=== PATIENT | female | born 1990 | race Caucasian/White ===

== ENCOUNTER 2017-05-20 08:11 | Emergency (ER) | payer MEDICAID ==
[~2017-05-20] VITALS: Ht 162.6 cm; Wt 65.4 kg
[~2017-05-20 08:11] MED LIST: AMOX-291 PO; AZIT250T89 PO; CIPR500T3 PO; LEVE250T28 PO; LEVE500T38 PO; PRED20TA PO
[2017-05-20] MEDS ORDERED: SODIUM CHLORIDE 0.9% 1,000 ML IV ONE (09:11)
[2017-05-20] MEDS ORDERED: SODIUM CHLORIDE 0.9% 1,000ML IVBOLUS ONE (09:30)
[2017-05-20] MEDS ORDERED: LORazepam 2 MG/ML, 1ML IVPush ONE (09:30)
[2017-05-20] MEDS ORDERED: LORazepam 2 MG/ML, 1ML ONE (09:34)
[2017-05-20 09:38] LABS: BLOOD UREA NITROGEN 10 mg/dL (7-18)
[2017-05-20] MEDS ORDERED: HYDROmorphone 1 MG/ML, 1ML ONE (10:23)
[2017-05-20] MEDS ORDERED: HYDROmorphone 1 MG/ML, 1ML IV ONE (10:30)
[2017-05-20 11:00] VITALS: BP 106/63
[2017-05-20 11:40] LABS: HCG UR OBC PASS
== END 2017-05-20 11:58 | disposition home or self-care (01) ==
LOC: ED 09:10
DX: R56.9 Unspecified convulsions (principal)
CPT/HCPCS: 36415; 80048; 81001; 81025; 82040; 82542; 85025; 87086; 93005; 96361; 96374; 96375; 99285; J1170; J2060; J7030

== ENCOUNTER 2017-06-14 08:14 | Emergency (ER) | payer MEDICAID ==
[~2017-06-14] VITALS: Ht 162.6 cm; Wt 64.9 kg
[2017-06-14] MEDS ORDERED: KETOROLAC 30 MG/1 ML ONE (08:42)
[2017-06-14] MEDS ORDERED: LORazepam 1MG TABLET ONE (08:42)
[2017-06-14] MEDS ORDERED: KETOROLAC 30 MG/1 ML IM ONE (09:00)
[2017-06-14] MEDS ORDERED: LORazepam 1MG TABLET PO ONE (09:00)
[2017-06-14 09:20] LABS: HCG UR OBC PASS
[2017-06-14] MEDS ORDERED: HYDROmorphone 2 MG/ML, 1ML ONE (10:27)
[2017-06-14 10:50] VITALS: BP 121/71
[2017-06-14] MEDS ORDERED: HYDROmorphone 1 MG/ML, 1ML IM ONE ×2 (11:00)
== END 2017-06-14 10:56 | disposition home or self-care (01) ==
LOC: ED 09:05
DX: R07.89 Other chest pain (principal); F41.1 Generalized anxiety disorder; M94.0 Chondrocostal junction syndrome [Tietze]; G40.909 Epilepsy, unspecified, not intractable, without status epilepticus
CPT/HCPCS: 71020; 81025; 93005; 96372; 99285; J1170; J1885

== ENCOUNTER 2017-07-17 03:33 | Emergency (ER) | payer MEDICAID ==
[~2017-07-17] VITALS: Ht 162.6 cm; Wt 67.0 kg
[~2017-07-17 03:33] MED LIST changes: -LEVE500T38 PO; +LEVE500T54 PO
[2017-07-17 05:09] LABS: HEMOGLOBIN 13.7 g/dL (11.7-16.4); WHITE BLOOD COUNT 7.7 x10^3/uL (3.4-10)
[2017-07-17 05:28] LABS: BLOOD UREA NITROGEN 8 mg/dL (7-18)
[2017-07-17 05:59] VITALS: BP 120/79
== END 2017-07-17 06:34 | disposition home or self-care (01) ==
LOC: ED 04:17
DX: O20.0 Threatened abortion (principal); F17.200 Nicotine dependence, unspecified, uncomplicated; Z88.6 Allergy status to analgesic agent; Z88.8 Allergy status to other drugs, medicaments and biological substances
CPT/HCPCS: 36415; 76801; 80048; 81001; 82040; 84702; 85025; 86901; 87086; 99285

== ENCOUNTER 2017-07-25 17:01 | Emergency (ER) | payer MEDICAID ==
[~2017-07-25] VITALS: Ht 165.1 cm; Wt 62.4 kg
[2017-07-25 17:03] VITALS: BP 126/79
[2017-07-25 17:57] LABS: HEMATOCRIT 38.5 % (34.6-47.8); HEMOGLOBIN 13.1 g/dL (11.7-16.4); WHITE BLOOD COUNT 12.5 x10^3/uL (3.4-10)
[2017-07-25] MEDS ORDERED: SODIUM CHLORIDE 0.9% 1,000ML IVBOLUS ONE (18:00)
[2017-07-25] MEDS ORDERED: MORPHINE SULFATE 4 MG/ML, 1ML IVPush PRN (18:00)
[2017-07-25] MEDS ORDERED: ONDANSETRON 2MG/ML, 2ML IVPush ONE (18:00)
[2017-07-25] MEDS ORDERED: SODIUM CHLORIDE FLUSH 10ML SYR IVF ONE (18:00)
[2017-07-25 18:10] LABS: ASPARTATE AMINO TRANSFERASE 11 U/L (15-37); BLOOD UREA NITROGEN 8 mg/dL (7-18)
[2017-07-25] MEDS ORDERED: ONDANSETRON 2MG/ML, 2ML ONE (18:20)
[2017-07-25] MEDS ORDERED: MORPHINE SULFATE 4 MG/ML, 1ML ONE (18:20)
== END 2017-07-25 20:49 | disposition home or self-care (01) ==
LOC: ED 19:45
DX: O20.0 Threatened abortion (principal); O23.11 Infections of bladder in pregnancy, first trimester; Z3A.12 12 weeks gestation of pregnancy
CPT/HCPCS: 36415; 76700; 76801; 80053; 81001; 84702; 85025; 87086; 96361; 96374; 96375; 99285; J2405; J7030

== ENCOUNTER 2017-07-28 14:38 | Emergency (ER) | payer MEDICAID ==
[~2017-07-28] VITALS: Ht 162.6 cm; Wt 62.1 kg
[2017-07-28 15:11] LABS: WHITE BLOOD COUNT 15.7 x10^3/uL (3.4-10)
[2017-07-28 15:19] LABS: BLOOD UREA NITROGEN 6 mg/dL (7-18)
[2017-07-28 15:37] LABS: ASPARTATE AMINO TRANSFERASE 6 U/L (15-37)
[2017-07-28] MEDS ORDERED: morphine SULFATE 10 MG/ML, 1ML IVPush ONE (16:00)
[2017-07-28] MEDS ORDERED: DIPHENHYDRAMINE 50 MG/ML, 1ML IVPush ONE (16:00)
[2017-07-28] MEDS ORDERED: METOCLOPRAMIDE 5 MG/ML, 2ML IVPush ONE (16:00)
[2017-07-28] MEDS ORDERED: METOCLOPRAMIDE 5 MG/ML, 2ML ONE (16:10)
[2017-07-28] MEDS ORDERED: MORPHINE SULFATE 4 MG/ML, 1ML ONE (16:10)
[2017-07-28] MEDS ORDERED: DIPHENHYDRAMINE 50 MG/ML, 1ML ONE (16:10)
[2017-07-28] MEDS ORDERED: AZITHROMYCIN 500 MG TABLET PO ONE (18:00)
[2017-07-28] MEDS ORDERED: CEFTRIAXONE 1,000 MG IM ONE (18:00)
[2017-07-28] MEDS ORDERED: CEFTRIAXONE 250 MG ONE (18:03)
[2017-07-28] MEDS ORDERED: AZITHROMYCIN 250 MG TABLET ONE (18:04)
[2017-07-28 18:28] VITALS: BP 103/55
== END 2017-07-28 18:32 | disposition home or self-care (01) ==
LOC: ED 18:15
DX: O20.0 Threatened abortion (principal); O23.512 Infections of cervix in pregnancy, second trimester; Z3A.08 8 weeks gestation of pregnancy
CPT/HCPCS: 36415; 76801; 80053; 81001; 84702; 85025; 87086; 87210; 87491; 87591; 87808; 96372; 96374; 96375; 99285; J0696; J1200; J2270; J2765

== ENCOUNTER 2017-08-02 09:19 | Emergency (ER) | payer MEDICAID ==
[~2017-08-02] VITALS: Ht 165.1 cm; Wt 62.2 kg
[2017-08-02 09:26] VITALS: BP 114/80
== END 2017-08-02 10:20 | disposition left against medical advice (07) ==
LOC: ED 10:14
DX: R11.2 Nausea with vomiting, unspecified (principal); Z53.21 Procedure and treatment not carried out due to patient leaving prior to being seen by health care provider

== ENCOUNTER 2017-08-08 10:11 | Emergency (ER) | payer MEDICAID ==
[~2017-08-08] VITALS: Ht 165.1 cm; Wt 61.1 kg
[2017-08-08] MEDS ORDERED: SODIUM CHLORIDE 0.9% 1,000 ML IV ONE (11:04)
[2017-08-08] MEDS ORDERED: ONDANSETRON 2MG/ML, 2ML ONE (11:28)
[2017-08-08] MEDS ORDERED: ONDANSETRON 2MG/ML, 2ML IVPush ONE (11:30)
[2017-08-08] MEDS ORDERED: SODIUM CHLORIDE 0.9% 1,000ML IVBOLUS ONE (11:30)
[2017-08-08] MEDS ORDERED: KETOROLAC 30 MG/1 ML IVPush ONE (11:30)
[2017-08-08 11:36] LABS: HEMATOCRIT 41.1 % (34.6-47.8); HEMOGLOBIN 14.1 g/dL (11.7-16.4); WHITE BLOOD COUNT 10.4 x10^3/uL (3.4-10)
[2017-08-08 11:44] LABS: BLOOD UREA NITROGEN 5 mg/dL (7-18)
[2017-08-08] MEDS ORDERED: KETOROLAC 30 MG/1 ML ONE (11:45)
[2017-08-08 13:03] VITALS: BP 107/66
== END 2017-08-08 13:05 ==
LOC: ED 10:37
DX: O9A.211 Injury, poisoning and certain other consequences of external causes complicating pregnancy, first trimester (principal); S39.012A Strain of muscle, fascia and tendon of lower back, initial encounter; O26.891 Other specified pregnancy related conditions, first trimester; O21.0 Mild hyperemesis gravidarum; Z3A.09 9 weeks gestation of pregnancy; X58.XXXA Exposure to other specified factors, initial encounter; Y93.89 Activity, other specified; Y92.89 Other specified places as the place of occurrence of the external cause; Y99.8 Other external cause status
CPT/HCPCS: 36415; 76801; 80048; 81001; 82040; 84702; 85025; 86901; 87086; 96361; 96374; 96375; 99285; J1885; J2405; J7030

== ENCOUNTER 2017-08-19 14:38 | Emergency (ER) | payer MEDICAID ==
[~2017-08-19] VITALS: Ht 162.6 cm; Wt 60.6 kg
[2017-08-19] MEDS ORDERED: SODIUM CHLORIDE 0.9% 1,000ML IVBOLUS ONE (15:00)
[2017-08-19] MEDS ORDERED: SODIUM CHLORIDE FLUSH 10ML SYR IVF ONE (15:00)
[2017-08-19] MEDS ORDERED: ONDANSETRON 2MG/ML, 2ML IVPush ONE (15:00)
[2017-08-19] MEDS ORDERED: HYDROmorphone 1 MG/ML, 1ML IVPush PRN (15:30)
[2017-08-19 15:35] LABS: HEMOGLOBIN 15.2 g/dL (11.7-16.4)
[2017-08-19] MEDS ORDERED: ONDANSETRON 2MG/ML, 2ML ONE (15:40)
[2017-08-19] MEDS ORDERED: HYDROmorphone 1 MG/ML, 1ML ONE (15:40)
[2017-08-19 15:42] LABS: BLOOD UREA NITROGEN 6 mg/dL (7-18)
[2017-08-19 15:59] LABS: ASPARTATE AMINO TRANSFERASE 12 U/L (15-37)
[2017-08-19 19:10] VITALS: BP 100/62
== END 2017-08-19 19:13 | disposition home or self-care (01) ==
LOC: ED 15:48
DX: O99.351 Diseases of the nervous system complicating pregnancy, first trimester (principal); R56.9 Unspecified convulsions; O99.282 Endocrine, nutritional and metabolic diseases complicating pregnancy, second trimester; E86.0 Dehydration; O21.9 Vomiting of pregnancy, unspecified; Z3A.11 11 weeks gestation of pregnancy
CPT/HCPCS: 36415; 76801; 80053; 81001; 84702; 85025; 87086; 96361; 96374; 96375; 99285; J1170; J2405; J7030

== ENCOUNTER 2017-09-19 16:17 | Emergency (ER) | payer MEDICAID ==
[~2017-09-19] VITALS: Ht 162.6 cm; Wt 62.9 kg
[2017-09-19 16:28] VITALS: BP 109/67
[2017-09-19] MEDS ORDERED: SODIUM CHLORIDE FLUSH 10ML SYR IVF ONE (16:30)
[2017-09-19] MEDS ORDERED: SODIUM CHLORIDE 0.9% 1,000ML IVBOLUS ONE (16:30)
[2017-09-19 17:06] LABS: HEMATOCRIT 39.8 % (34.6-47.8); HEMOGLOBIN 13.8 g/dL (11.7-16.4); WHITE BLOOD COUNT 12.9 x10^3/uL (3.4-10)
[2017-09-19 17:17] LABS: BLOOD UREA NITROGEN 9 mg/dL (7-18)
== END 2017-09-19 18:41 | disposition left against medical advice (07) ==
LOC: ED 17:18
DX: O26.892 Other specified pregnancy related conditions, second trimester (principal); O21.9 Vomiting of pregnancy, unspecified; R11.0 Nausea; Z3A.14 14 weeks gestation of pregnancy
CPT/HCPCS: 36415; 80048; 82040; 85025; 99284

== ENCOUNTER 2017-10-02 23:53 | Emergency (ER) | payer MEDICAID ==
[~2017-10-02] VITALS: Ht 162.6 cm; Wt 70.0 kg
[2017-10-03] MEDS ORDERED: DIPHENHYDRAMINE 50 MG/ML, 1ML ONE (00:15)
[2017-10-03 00:25] LABS: HEMATOCRIT 39.1 % (34.6-47.8); HEMOGLOBIN 13.5 g/dL (11.7-16.4); WHITE BLOOD COUNT 14.1 x10^3/uL (3.4-10)
[2017-10-03] MEDS ORDERED: SODIUM CHLORIDE FLUSH 10ML SYR IVF ONE (00:30)
[2017-10-03] MEDS ORDERED: DIPHENHYDRAMINE 50 MG/ML, 1ML IVPush ONE (00:30)
[2017-10-03 00:32] LABS: BLOOD UREA NITROGEN 7 mg/dL (7-18)
[2017-10-03] MEDS ORDERED: SODIUM CHLORIDE 0.9% 1,000ML IVBOLUS ONE (01:00)
[2017-10-03] MEDS ORDERED: OMNIPAQUE 350 MG/ML, 100ML BOTTLE ONE (01:54)
[2017-10-03 01:57] VITALS: BP 107/75
== END 2017-10-03 02:01 | disposition home or self-care (01) ==
LOC: ED 23:59
DX: O26.892 Other specified pregnancy related conditions, second trimester (principal); R07.89 Other chest pain; O99.352 Diseases of the nervous system complicating pregnancy, second trimester; G40.909 Epilepsy, unspecified, not intractable, without status epilepticus; Z3A.17 17 weeks gestation of pregnancy; Z87.891 Personal history of nicotine dependence
CPT/HCPCS: 36415; 71010; 71275; 80048; 81001; 82040; 85025; 85379; 87086; 93005; 96374; 99285; J1200; J7030; Q9967

== ENCOUNTER 2018-12-05 08:44 | Emergency (ER) | payer MEDICAID ==
[~2018-12-05] VITALS: Ht 165.1 cm; Wt 68.2 kg
--- NOTE | 2018-12-05 09:11 | NUR ---
BIB [facility] WITH C/O COUGH X 1.5 MONTHS WITH BLOODY AND DARK SPUTUM. PT STATES FEVER, CHILLS, NIGHT SWEATS. RECENT DX WITH LYMPHOMA AND STARTS TREATMENT NEXT MONTH. MILD AMOUNT OF DISTRESS NOTED AT THIS TIME. BREATHING REGULAR AND UNLABORED. 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 AWAITING EVAL. WILL CONTINUE TO MONITOR.
[2018-12-05] MEDS ORDERED: ALBUTEROL/IPRATROPIUM 2.5MG/0.5MG, 3 ML ONE (10:00)
[2018-12-05] MEDS ORDERED: ALBUTEROL/IPRATROPIUM 2.5MG/0.5MG, 3 ML NPPB ONE (10:00)
--- NOTE | 2018-12-05 10:01 | NUR ---
PT MEDICATED PER Jan.23 RIGHTS VERIFIED PRIOR.
[2018-12-05 10:48] VITALS: BP 125/70
== END 2018-12-05 10:50 | disposition home or self-care (01) ==
LOC: ED 10:21
DX: J02.8 Acute pharyngitis due to other specified organisms (principal); J98.01 Acute bronchospasm; B97.89 Other viral agents as the cause of diseases classified elsewhere
CPT/HCPCS: 71045; 93005; 94640; 99283; J7512; J7620

== ENCOUNTER 2019-01-23 22:37 | Emergency (ER) | payer MEDICAID ==
[~2019-01-23] VITALS: Ht 165.1 cm; Wt 67.6 kg
[2019-01-23 23:01] VITALS: BP 124/73
--- NOTE | 2019-01-23 23:03 | NUR ---
PT BIB FAMILY C/O CP, SOB, AND DIFFUSE ABD PAIN W/ ASSOCIATED SORE THROAT AND HOARSE VOICE PRESENT. STATES NON-PRODUCTIVE COUGHx3 DAYS. 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 ALL MONITORING APPLIED. VSS. CALL LIGHT WITHIN REACH.
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
--- NOTE | 2019-01-23 23:07 | NUR ---
PT REPORT TO MANUELA HERRMANN.
[2019-01-23] MEDS ORDERED: ACETAMINOPHEN 325 MG TABLET ONE (23:14)
[2019-01-23] MEDS ORDERED: IBUPROFEN 600 MG TABLET ONE (23:14)
[2019-01-23] MEDS ORDERED: ONDANSETRON ODT 4 MG ONE (23:14)
[2019-01-23 23:21] LABS: BASOPHILS # (AUTO) 0.08 x10^3/uL (0-0.1); BASOPHILS % (AUTO) 1 % (0-1); EOSINOPHILS # (AUTO) 0.21 x10^3/uL (0-0.4); EOSINOPHILS % (AUTO) 2 % (1-7); LYMPHOCYTES # (AUTO) 4.18 x10^3/uL (1-3.4); LYMPHOCYTES % (AUTO) 43 % (22-44); MD NO; MEAN CORPUSCULAR HEMOGLOBIN 32.4 pg (27.0-34.8); MEAN CORPUSCULAR HGB CONC 34.7 g/dL (32.4-35.8); MEAN CORPUSCULAR VOLUME 93.2 fL (80-100); MEAN PLATELET VOLUME 8.1 fL (7.4-10.4); MONOCYTES # (AUTO) 0.61 x10^3/uL (0.2-0.8); MONOCYTES % (AUTO) 6 % (2-9); NEUTROPHILS # (AUTO) 4.71 x10^3/uL (1.8-6.8); NEUTROPHILS % (AUTO) 48 % (42-75); PLATELET COUNT 346 x10^3/uL (130-400); RED CELL DISTRIBUTION WIDTH 13.6 % (9.6-15.2)
[2019-01-23] MEDS ORDERED: ONDANSETRON ODT 4 MG PO ONE (23:30)
[2019-01-23] MEDS ORDERED: ACETAMINOPHEN 325 MG TABLET PO ONE (23:30)
[2019-01-23] MEDS ORDERED: IBUPROFEN 600 MG TABLET PO ONE (23:30)
[2019-01-23 23:33] LABS: ALBUMIN 4.3 g/dL (3.4-5.0); ANION GAP 4 mmol/L (5-15); CALCIUM 8.9 mg/dL (8.5-10.1); CHLORIDE 111 mmol/L (98-107); CREATININE 0.81 mg/dL (0.55-1.02)
[2019-01-23 23:44] LABS: CULTURE INDICATED? YES; MICROSCOPIC AUTO
== END 2019-01-24 00:35 | disposition home or self-care (01) ==
LOC: ED 22:59
DX: N30.00 Acute cystitis without hematuria (principal); R07.9 Chest pain, unspecified; R05 Cough; F41.1 Generalized anxiety disorder; G40.909 Epilepsy, unspecified, not intractable, without status epilepticus; F17.200 Nicotine dependence, unspecified, uncomplicated; Z88.6 Allergy status to analgesic agent; Z91.018 Allergy to other foods
CPT/HCPCS: 36415; 71046; 80048; 81001; 82040; 84703; 85025; 87086; 93005; 99284; Q0162

== ENCOUNTER 2020-01-18 18:05 | Emergency (ER) | payer MEDICAID ==
[~2020-01-18] VITALS: Ht 165.1 cm; Wt 59.0 kg
[2020-01-18 18:14] VITALS: BP 118/85
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
[2020-01-18] MEDS ORDERED: LORazepam 1MG TABLET PO ONE (18:30)
[2020-01-18] MEDS ORDERED: HYDROcodone/APAP 5/325 TABLET PO ONE (18:30)
[2020-01-18] MEDS ORDERED: ONDANSETRON ODT 4 MG PO ONE (18:30)
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
[2020-01-18] MEDS ORDERED: LORazepam 1MG TABLET ONE (18:36)
[2020-01-18] MEDS ORDERED: ONDANSETRON ODT 4 MG ONE (18:36)
[2020-01-18] MEDS ORDERED: HYDROcodone/APAP 5/325 TABLET ONE (18:36)
[2020-01-18 18:53] LABS: BASOPHILS # (AUTO) 0.03 x10^3/uL (0-0.1); BASOPHILS % (AUTO) 0 % (0-1); EOSINOPHILS # (AUTO) 0.03 x10^3/uL (0-0.4); EOSINOPHILS % (AUTO) 0 % (1-7); LYMPHOCYTES # (AUTO) 1.75 x10^3/uL (1-3.4); LYMPHOCYTES % (AUTO) 16 % (22-44); MD NO; MEAN CORPUSCULAR HGB CONC 33.8 g/dL (32.4-35.8); MEAN CORPUSCULAR VOLUME 94.7 fL (80-100); MEAN PLATELET VOLUME 7.9 fL (7.4-10.4); MONOCYTES # (AUTO) 0.81 x10^3/uL (0.2-0.8); MONOCYTES % (AUTO) 8 % (2-9); NEUTROPHILS # (AUTO) 8.23 x10^3/uL (1.8-6.8); NEUTROPHILS % (AUTO) 76 % (42-75); PLATELET COUNT 290 x10^3/uL (130-400); RED BLOOD COUNT 4.15 x10^6/uL (3.82-5.3); RED CELL DISTRIBUTION WIDTH 13.4 % (9.6-15.2)
--- NOTE | 2020-01-18 18:54 | NUR ---
TASK RN: URINE COLLECTED VIA STRAIGHT CATH AND TAKEN TO LAB.
[2020-01-18 19:04] LABS: ALBUMIN 3.7 g/dL (3.4-5.0); ANION GAP 5 mmol/L (5-15); CALCIUM 8.3 mg/dL (8.5-10.1); CHLORIDE 113 mmol/L (98-107)
--- NOTE | 2020-01-18 19:08 | NUR ---
PT WAS ABLE TO REMOVE HER CLOTHING ON HER OWN IN HER BED. WAS ABLE TO BEND LEGS. SHE IS GOING TO X RAY FOR A 3 WAY ABDOMEN.
[2020-01-18 19:09] LABS: ALANINE AMINOTRANSFERASE 31 U/L (12-78); ALKALINE PHOSPHATASE 93 U/L (45-117); BILIRUBIN,TOTAL 1.2 mg/dL (0.2-1.0); CREATININE 1.17 mg/dL (0.55-1.02)
[2020-01-18 19:15] LABS: MICROSCOPIC INDICATED
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
[2020-01-18 19:36] LABS: CULTURE INDICATED? NO
--- NOTE | 2020-01-18 19:53 | NUR ---
THIS NURSE WAS IN THE ROOM WITH MD WHILE UPDATING PT ON POC.
--- NOTE | 2020-01-18 20:35 | NUR ---
TASK RN: THIS RN PRESENT WITH PRIMARY RN FOR DC PAPERWORK AND EXPLANATION. BF LAYING IN BED WITH PT. PT ALREADY DRESSED. ALL QUESTIONS ANSWERED BY PRIMARY RN.
== END 2020-01-18 20:38 | disposition home or self-care (01) ==
LOC: ED 19:25
DX: R10.84 Generalized abdominal pain (principal); R94.4 Abnormal results of kidney function studies; G40.909 Epilepsy, unspecified, not intractable, without status epilepticus; F17.210 Nicotine dependence, cigarettes, uncomplicated
CPT/HCPCS: 36415; 74022; 80053; 81001; 83690; 84703; 85025; 99284; 99406; Q0162

== ENCOUNTER 2020-01-27 20:57 | Emergency (ER) | payer MEDICAID ==
[2020-01-27 21:03] VITALS: BP 112/74
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
[2020-01-27] MEDS ORDERED: LEVETIRACETAM 500 MG TABLET PO STA (22:47)
[2020-01-27] MEDS ORDERED: LEVETIRACETAM 500 MG TABLET ONE (22:50)
== END 2020-01-27 21:27 ==
LOC: ED 21:26
DX: T74.21XA Adult sexual abuse, confirmed, initial encounter (principal); N89.8 Other specified noninflammatory disorders of vagina; R10.2 Pelvic and perineal pain; G40.909 Epilepsy, unspecified, not intractable, without status epilepticus
CPT/HCPCS: 99283

== ENCOUNTER 2020-05-15 19:31 | Emergency (ER) | payer MEDICAID ==
[~2020-05-15] VITALS: Ht 162.6 cm; Wt 59.0 kg
[2020-05-15 19:42] VITALS: BP 104/75
[2020-05-15] MEDS ORDERED: KETOROLAC 30 MG/1 ML ONE (20:22)
[2020-05-15] MEDS ORDERED: KETOROLAC 30 MG/1 ML IM ONE (20:30)
== END 2020-05-15 21:06 | disposition home or self-care (01) ==
LOC: ED 20:55
DX: S93.402A Sprain of unspecified ligament of left ankle, initial encounter (principal); S86.912A Strain of unspecified muscle(s) and tendon(s) at lower leg level, left leg, initial encounter; G40.909 Epilepsy, unspecified, not intractable, without status epilepticus; F17.200 Nicotine dependence, unspecified, uncomplicated; W18.30XA Fall on same level, unspecified, initial encounter; Y93.89 Activity, other specified; Y92.89 Other specified places as the place of occurrence of the external cause; Y99.8 Other external cause status
CPT/HCPCS: 73610; 73630; 96372; 99284; J1885